=== PATIENT | female | born 1960 | race Caucasian/White ===

== ENCOUNTER 2020-03-22 07:49 | Day surgery (SDC) | payer MEDICAID ==
[2020-03-14 16:35] LABS: BASOPHILS % (AUTO) 0.6 % (0-1); EOSINOPHILS # (AUTO) 0.1 X10'3 (0-0.9); EOSINOPHILS % (AUTO) 0.7 % (0-6); LYMPHOCYTES # (AUTO) 1.1 X10'3 (1.1-4.8); LYMPHOCYTES % (AUTO) 14.6 % (21-51); MEAN CORPUSCULAR HEMOGLOBIN 27.6 PG (27.0-31.0); MEAN CORPUSCULAR HGB CONC 33.2 g/dL (33.0-36.5); MEAN CORPUSCULAR VOLUME 83.3 FL (78-98); MONOCYTES # (AUTO) 0.7 X10'3 (0-0.9); MONOCYTES % (AUTO) 9.6 % (2-12); NEUTROPHILS # (AUTO) 5.8 X10'3 (1.8-7.7); NEUTROPHILS % (AUTO) 74.5 % (42-75); PRE OP HEMOGLOBIN 13.3 g/dL (12.0-16.0); PRE OP PLATELET COUNT 331 X10'3 (140-440); RED CELL DISTRIBUTION WIDTH 15.9 % (11.5-14.5)
[2020-03-14 16:48] LABS: ALBUMIN 3.8 G/DL (3.4-5.0); ALKALINE PHOSPHATASE 103 IU/L (46-116); BLOOD UREA NITROGEN 15 MG/DL (7-18); BUN/CREATININE RATIO 18.1 (6.6-38.0); CALCIUM 9.7 MG/DL (8.5-10.1); CHLORIDE 104 MMOL/L (99-107); CREATININE 0.83 MG/DL (0.40-0.90); PRE OP ALT 39 U/L (30-65); PRE OP ANION GAP 10 (8-16); PRE OP AST 30 U/L (10-37); PRE OP BILIRUB, TOTAL 0.4 MG/DL (0.0-1.0); PRE OP GLUCOSE 98 MG/DL (70-104); PRE OP POTASSIUM 3.4 MMOL/L (3.4-5.1); PRE OP SODIUM 140 MMOL/L (135-145); TOTAL CARBON DIOXIDE 26.5 MMOL/L (24-32); TOTAL PROTEIN 7.7 G/DL (6.4-8.2); eGFR 70 ML/MIN
[~2020-03-22] VITALS: Ht 165.1 cm; Wt 78.7 kg
[2020-03-22] VITALS (13 sets, daily range): BP systolic 100–148; BP diastolic 61–80
[~2020-03-22 07:49] MED LIST: BUPIVAcaine 0.5% inj/PF 30 ML ONE; BUPIVAcaine/PF 2.5 mg/ml (0.25%) 30ml vial ONE; FURO-149 PO; HYDR-4353 PO; LIDOcaine 1% 30ml preserv. free vial ONE; METH-604 PO; OMEP20TA23 PO; PREG100C PO; cefazolin/dext.iso 2gm/50ml 50 ML IV ONE; famotidine 20mg tablet PO ONE; ringers solution, lacted 1,000 ML IV SCH
[2020-03-22] MEDS ORDERED: ringers solution, lacted 1,000 ML IV SCH (07:56)
[2020-03-22] MEDS ORDERED: proCHLORperazine 10 MG/2 ml inj IV PRN (08:00)
[2020-03-22] MEDS ORDERED: ondansetron/PF 4mg/2ml inj IV PRN (08:00)
[2020-03-22] MEDS ORDERED: meperidine/PF 25mg/ml syringe IV PRN ×2 (08:00)
[2020-03-22] MEDS ORDERED: morphine 4 MG/ML inj SYRINge IV PRN (08:00)
[2020-03-22] MEDS ORDERED: morphine 2 MG/ML inj. syringe IV PRN (08:00)
[2020-03-22] MEDS ORDERED: INDOCYANINE GREEN 25 MG/10 ML VIAL IV ONE (08:20)
[2020-03-22] MEDS ORDERED: acetaminophen 1,000mg/100ml IV 100 ML IV ONE (09:33)
[2020-03-22] MEDS ORDERED: glycopyrrolate 0.2mg/ml inj ONE (10:39)
[2020-03-22] MEDS ORDERED: sevoflurane 250ml liquid IH ONE (10:39)
[2020-03-22] MEDS ORDERED: neostigmine methylsulfate 1 MG/ML 10ml vial ONE (10:39)
[2020-03-22] MEDS ORDERED: LIDOcaine 2% (20mg/ml) 5ml vial ONE (10:45)
[2020-03-22] MEDS ORDERED: propofol inj 20 ML IV ONE (10:45)
[2020-03-22] MEDS ORDERED: fentaNYL/PF 50MCG/1 ML 2ML syringe ONE (10:45)
[2020-03-22] MEDS ORDERED: midazolam 2 mg/2 ml injection ONE (10:45)
[2020-03-22] MEDS ORDERED: rocuronium 10mg/ml inj IV ONE (10:49)
[2020-03-22] MEDS ORDERED: dexamethasone sod phosphate 4mg/ml inj. ONE (10:55)
[2020-03-22] MEDS ORDERED: ondansetron/PF 4mg/2ml inj ONE (10:55)
[2020-03-22] MEDS ORDERED: HYDROcodone/acetaminophen 10/325mg tab PO PRN (12:00)
--- NOTE | 2020-03-22 12:07 | NUR ---
RECEIVED FROM OR VIA ROSALINE ACCOMPANIED BY ANESTHESIOLOGIST DR MUSA, REPORT GIVEN. PT DROWSY BUT AWAKENS EASILY WITH NO COMPLAINT OF PAIN AT THIS TIME. 20 GAUGE PIV ANABEL PATENT AND RUNNING LR AT 100 ML/HR. LG BANDAID X4 TO ABDOMEN CDI, ABD SOFT, VSS, MANRIQUEZ, SKIN PINK AND WARM. Addendum: 03/22/20 at 1232 by Camila Alfaro RN Amended: Links added.
[2020-03-22] MEDS: meperidine/PF 25mg/ml syringe IV PRN ×2 (12:36→12:51)
--- NOTE | 2020-03-22 13:57 | NUR ---
VSS, ABD SOFT, DRESSINGS CDI, TOLERATING FLUIDS, 20 GAUGE PIV L WRIST DC/D CATH TIP INTACT. DISCHARGE INSTRUCTIONS GIVEN, PT VERBALIZED UNDERSTANDING. TRANSPORTED VIA WHEELCHAIR TO FRIEND IN PERSONAL VEHICLE TO HOME. Addendum: 03/22/20 at 1412 by Camila Alfaro RN Amended: Links added.
== END 2020-03-22 13:57 | disposition home or self-care (01) ==
LOC: PAS 07:49
PROVIDERS: ATTEND Surgery
DX: K80.10 Calculus of gallbladder with chronic cholecystitis without obstruction (principal); K85.90 Acute pancreatitis without necrosis or infection, unspecified; G89.29 Other chronic pain; E03.9 Hypothyroidism, unspecified; K21.9 Gastro-esophageal reflux disease without esophagitis; G62.9 Polyneuropathy, unspecified; Z79.899 Other long term (current) drug therapy; Z87.891 Personal history of nicotine dependence; Z85.118 Personal history of other malignant neoplasm of bronchus and lung; Z98.890 Other specified postprocedural states; Z72.89 Other problems related to lifestyle; Z80.0 Family history of malignant neoplasm of digestive organs; Z82.49 Family history of ischemic heart disease and other diseases of the circulatory system; Z11.59 Encounter for screening for other viral diseases
CPT/HCPCS: 36415; 47563; 80053; 82948; 85025; 87635; 93005; J0131; J1100; J2001; J2175; J2250; J2405; J2704; J2710; J3010; J3490; J7120; A4215; A4618